=== PATIENT | female | born 1990 | race Caucasian/White ===

== ENCOUNTER 2020-07-22 13:42 | Emergency (ER) | payer SELFPAY ==
[2020-07-22] MEDS ORDERED: Ondansetron ODT 4 MG TAB ONE (14:14)
== END 2020-07-22 14:32 | disposition left against medical advice (07) ==
LOC: BURERS 13:42
DX: Z53.21 Procedure and treatment not carried out due to patient leaving prior to being seen by health care provider (principal)
CPT/HCPCS: 94760; Q0162